=== PATIENT | female | born 1955 | race Caucasian/White ===

== ENCOUNTER 2016-07-14 18:11 | Emergency (ER) | payer OTHER ==
[~2016-07-14] VITALS: Ht 160 cm; Wt 78.2 kg
[2016-07-14 21:38] VITALS: BP 176/90
== END 2016-07-14 21:38 | disposition home or self-care (01) ==
LOC: ED 18:11
DX: J20.9 Acute bronchitis, unspecified (principal); I10 Essential (primary) hypertension; E78.00 Pure hypercholesterolemia, unspecified
CPT/HCPCS: J7613; J7644; Q0092

== ENCOUNTER 2018-03-13 07:57 | Day surgery (SDC) | payer OTHER ==
[~2018-03-13] VITALS: Ht 160 cm; Wt 76.2 kg
[2018-03-13 08:32] VITALS: BP 140/68
[2018-03-13 10:08] VITALS: BP 121/83
== END 2018-03-13 11:00 | disposition home or self-care (01) ==
LOC: GI 07:57 → OR 09:30 → GI 10:00 → OR 10:30 → GI 11:00
PROVIDERS: Internal Medicine Gastroenterology
PROC: 0DB58ZX Excision of Esophagus, Via Natural or Artificial Opening Endoscopic, Diagnostic (ICD-10-PCS; principal; 2018-03-13 10:00)
PROC: 0DB68ZX Excision of Stomach, Via Natural or Artificial Opening Endoscopic, Diagnostic (ICD-10-PCS; 2018-03-13 10:00)
PROC: 0DBP8ZX Excision of Rectum, Via Natural or Artificial Opening Endoscopic, Diagnostic (ICD-10-PCS; 2018-03-13 10:00)
DX: K21.9 Gastro-esophageal reflux disease without esophagitis (principal); K57.30 Diverticulosis of large intestine without perforation or abscess without bleeding; K64.8 Other hemorrhoids; Z12.11 Encounter for screening for malignant neoplasm of colon; Z68.29 Body mass index [BMI] 29.0-29.9, adult
CPT/HCPCS: 43235; 45378; G0500; J1610; J2250; J2310; J3010; J3490